=== PATIENT | female | born 1960 | race Caucasian/White ===

== ENCOUNTER → 2018-06-27 | Outpatient (CLI) | payer OTHER ==
[2018-06-27 09:00] LABS: BASO # 0.1 x10^3/uL (0.0-0.2); BASO % 1 % (0-3); EOS # 0.2 x10^3/uL (0.0-0.7); EOS % 4 % (0-3); HEMATOCRIT 49.2 % (36.0-47.0); LYMPH % 34 % (24-48); MEAN CORPUSCULAR HEMOGLOBIN 29 pg (25-35); MEAN CORPUSCULAR HGB CONC 35 g/dL (31-37); MEAN CORPUSCULAR VOLUME 84 fL (79-100); MONO # 0.5 x10^3/uL (0.0-1.1); MONO % 8 % (0-9); NEUT # 3.1 x10^3uL (1.8-7.7); NEUT % 53 % (31-73); PLATELET COUNT 210 x10^3/uL (140-400); RED BLOOD COUNT 5.86 x10^6/uL (3.50-5.40); RED CELL DISTRIBUTION WIDTH 12.9 % (11.5-14.5)
[2018-06-27 09:11] LABS: ALBUMIN 3.8 g/dL (3.4-5.0); ALBUMIN/GLOBULIN RATIO 0.9 (1.0-1.7); CALCIUM 9.1 mg/dL (8.5-10.1); CREATININE 0.8 mg/dL (0.6-1.0); GFR 73.2; TOTAL BILIRUBIN 0.4 mg/dL (0.2-1.0); TOTAL PROTEIN 7.9 g/dL (6.4-8.2)
[2018-06-27 09:14] LABS: POTASSIUM 4.7 mmol/L (3.5-5.1)
[2018-06-27 17:37] LABS: THYROID STIM HORMONE (TSH) 2.732 uIU/mL (0.358-3.740)
[2018-07-02 23:12] LABS: HCV ULTRA QUANT PCR 477000 IU/mL (.)
== END | disposition home or self-care (01) ==
LOC: LAB 08:13
PROVIDERS: ATTEND Family Medicine
DX: I10 Essential (primary) hypertension (principal); Z68.27 Body mass index [BMI] 27.0-27.9, adult
CPT/HCPCS: 36415; 80053; 80061; 84443; 85025; 86803; 87521

== ENCOUNTER → 2020-12-01 | Outpatient (CLI) | payer OTHER ==
[2020-12-01 10:13] LABS: HEMOGLOBIN 14.2 g/dL (12.0-15.5); RED BLOOD COUNT 4.95 x10^6/uL (3.50-5.40); RED CELL DISTRIBUTION WIDTH 13.3 % (11.5-14.5); WHITE BLOOD COUNT 7.1 x10^3/uL (4.0-11.0)
[2020-12-01 10:40] LABS: ALBUMIN 3.8 g/dL (3.4-5.0); ALBUMIN/GLOBULIN RATIO 1.1 (1.0-1.7); CREATININE 0.6 mg/dL (0.6-1.0); GFR 101.3; POTASSIUM 4.8 mmol/L (3.5-5.1); TOTAL BILIRUBIN 0.4 mg/dL (0.2-1.0); TOTAL PROTEIN 7.3 g/dL (6.4-8.2)
== END ==
LOC: LAB 09:25
PROVIDERS: ATTEND Family Medicine
DX: I10 Essential (primary) hypertension (principal)
CPT/HCPCS: 36415; 80053; 80061; 85027

== ENCOUNTER 2021-02-23 07:44 | Emergency (ER) | payer OTHER ==
[~2021-02-23] VITALS: Ht 162.6 cm; Wt 77.7 kg
[2021-02-23 07:50] VITALS: BP 156/84
--- NOTE | 2021-02-23 08:09 | PHYS DOC ---
Past History Past Surgical History: , Other Additional Past Surgical Histo: partial kidney removal Adult General Chief Complaint Chief Complaint: GI PROBLEM HPI HPI Patient is a 60-year-old female presenting via POV for flank pain. Onset was approximately 7 days ago without any known onset, mechanism of injury, trauma or other exposure. Nothing known makes better, certain positional movements make worse. Pain is sharp and deep with some radiation down into her flank and right groin. Timing of symptoms has been intermittent since onset but have been more constant in the past 24 hours prompting her to come in for evaluation. She has no history of kidney stones, denies any dysuria or other symptoms. 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 States she is otherwise been at baseline health prior to this episode. She is currently on Suboxone and reports this in addition to " Keflex for fish" that she got from local veterinary store for past 5 days has not improved her symptoms prompting her to come in for evaluation Review of Systems Review of Systems Fourteen body systems of review of systems have been reviewed. See HPI for pertinent positives and negative responses, other thompson all other systems are negative, non-pertinent or non-contributory Physical Exam Physical Exam Constitutional: Well developed, well nourished, no acute distress, non-toxic appearance. HENT: Normocephalic, atraumatic, bilateral external ears normal, oropharynx moist, no oral exudates, nose normal. Eyes: PERRLA, EOMI, conjunctiva normal, no discharge. Neck: Normal range of motion, no tenderness, supple, no stridor. Cardiovascular: Heart rate regular, sinus rhythm, no murmurs rubs or gallops Lungs & Thorax: Bilateral breath sounds clear to auscultation Abdomen: Bowel sounds normal, soft, no tenderness, no masses, no pulsatile masses. Nonsurgical abdomen, no peritoneal signs Skin: Warm, dry, no erythema, no rash. Back: No tenderness, right CVA tenderness Extremities: No tenderness, no cyanosis, no clubbing, ROM intact, no edema. Neurologic: Alert and oriented X 3, grossly normal motor & sensory function, no focal deficits noted. Psychologic: Affect normal, judgement normal, mood normal. Current Patient Data Vital Signs Vital Signs Date Time Temp Pulse Resp B/P (MAP) Pulse Ox O2 Delivery O2 Flow Rate FiO2 12/3/21 07:50 98.3 66 16 156/84 (108) 97 Room Air Vital Signs Date Time Temp Pulse Resp B/P (MAP) Pulse Ox O2 Delivery O2 Flow Rate FiO2 02/23/21 07:50 98.3 66 16 156/84 (108) 97 Room Air Lab Results Laboratory Tests Test 02/23/21 08:25 White Blood Count 8.7 x10^3/uL Red Blood Count 5.16 x10^6/uL Hemoglobin 14.7 g/dL Hematocrit 43.4 % Mean Corpuscular Volume 84 fL Mean Corpuscular Hemoglobin 29 pg Mean Corpuscular Hemoglobin Concent 34 g/dL Red Cell Distribution Width 13.2 % Platelet Count 243 x10^3/uL Neutrophils (%) (Auto) 69 % Lymphocytes (%) (Auto) 21 % Monocytes (%) (Auto) 8 % Eosinophils (%) (Auto) 1 % Basophils (%) (Auto) 1 % Neutrophils # (Auto) 6.0 x10^3uL Lymphocytes # (Auto) 1.8 x10^3/uL Monocytes # (Auto) 0.7 x10^3/uL Eosinophils # (Auto) 0.1 x10^3/uL Basophils # (Auto) 0.1 x10^3/uL Sodium Level 134 mmol/L Potassium Level 4.4 mmol/L Chloride Level 96 mmol/L Carbon Dioxide Level 29 mmol/L Anion Gap 9 Blood Urea Nitrogen 14 mg/dL Creatinine 0.7 mg/dL Estimated GFR (Cockcroft-Gault) 84.8 Glucose Level 101 mg/dL Calcium Level 9.1 mg/dL Troponin I High Sensitivity 6 ng/L Current Medications Medications (Trade) Dose Ordered Sig/Ash Route PRN Reason Start Time Stop Time Status Last Admin Dose Admin Sodium Chloride 1,000 ml @ 1,000 mls/hr 1X ONCE IV 02/23/21 08:15 02/23/21 09:14 UNV 02/23/21 08:29 EKG EKG EKG ordered and interpreted by myself at 0840 hrs. as sinus rhythm at 58 bpm, QRS prolonged at 144 otherwise unremarkable intervals, left axis deviation, T wave inversion in lead I and aVL, no STEMI Radiology/Procedures Radiology/Procedures EXAM: CT Abdomen and Pelvis without IV contrast CLINICAL HISTORY: rt flank pain, right abd pain, hx rt partial nephrectomy x 20+yrs COMPARISON: none TECHNIQUE: Helical CT of the abdomen and pelvis without intravenous contrast. Axial, coronal and sagittal reformatted images were generated. PQRS compliance statement - One or more of the following individualized dose reduction techniques were utilized for this study: 1. Automated exposure control 2. Adjustment of the mA and/or kV according to patient size 3. Use of iterative reconstruction technique FINDINGS: Lack of intravenous contrast limits evaluation of solid organs, vasculature, and lymph nodes. Lower chest: Linear opacities in the middle lobe and lingula likely scarring/atelectasis. Mitral calcifications. Coronary calcifications. Abdomen and Pelvis: Liver is cirrhotic in morphology no focal liver lesion. Gallbladder is normal. No biliary dilatation. Pancreas, spleen and adrenal glands are unremarkable. No focal renal lesion. No hydronephrosis. No hydroureter. Bladder is unremarkable. Uterus and adnexa are unremarkable. Moderate colonic stool content is seen. Chronic diverticulosis is seen. No small or large bowel dilatation. No bowel obstruction. No renal tract calculus. No hydronephrosis. No hydroureter. Bladder is unremarkable. Trace fat-containing umbilical hernia is seen. No abdominal or pelvic lymphadenopathy. No abdominal pelvic ascites. Bones: No aggressive osseous lesion is seen. IMPRESSION: No renal tract calculus. Liver is cirrhotic in morphology. Moderate colonic stool content. No bowel obstruction. Colonic diverticulosis without evidence for acute cholecystitis. Electronically signed by: Rigoberto James MD (02/23/2021 9:02 AM) [id number] DICTATED AND SIGNED BY: RIGOBERTO JAMES MD DATE: 02/23/21 0853 Heart Score C/O Chest Pain: No HEART Score for Chest Pain: HEART Score for Chest Pain Response (Comments) Value History Slighlty/Non-Suspicious 0 ECG Nonspecific Repolarizatio 1 Age >45 - < 65 1 Risk Factors 1 or 2 Risk Factors 1 Troponin < Normal Limit 0 Total 3 Risk Factors: Risk Factors: DM, Current or recent (<one month) smoker, HTN, HLP, family history of CAD, obesity. Risk Scores: Risk Factors: DM, Current or recent (<one month) smoker, HTN, HLP, family history of CAD, obesity. Course & Med Decision Making Course & Med Decision Making ABCs unremarkable. I disclosed entirety of ER findings and discussed most likely diagnosis of flank/abdominal pain of unknown etiology. Other diagnoses were discussed with patient such as kidney stones, ACS, no other intra-abdominal abnormalities/emergencies but all deemed less likely causes of patient's presentation. Patient symptoms resolved with ER intervention. Plan of care discussed at length with need for close outpatient follow-up to review today's ER visit stressed. Strict return precautions were also discussed at length with good understanding verbalized by patient. Patient voiced understanding and agreement with the plan. Patient knows to come back for repeat evaluation if concerning signs or symptoms present prior to outpatient follow-up. Hemodynamically stable, ambulatory and well-appearing at time of disposition. Dragon Disclaimer Dragon Disclaimer This electronic medical record was generated, in whole or in part, using a voice recognition dictation system. Departure Departure: Impression: Primary Impression: Flank pain Disposition: HOME / SELF CARE / HOMELESS Condition: STABLE Referrals: DAMION BECKETT MD (PCP) Additional Instructions: You have been evaluated in the Emergency Department today for abdominal pain. Your evaluation was not suggestive of any emergent condition requiring medical intervention at this time. However, some abdominal problems make take more time to appear. Therefore, it is important for you to watch for any new symptoms or worsening of your current c ondition. I did disclose findings of your CT abdomen pelvis study that was overall nonconcerning. He had evidence of moderate stool burden without obstruction, diverticulosis without acute infection, and liver cirrhosis and morphology that should be checked up on by primary care physician with [facility] Please continue supportive care practices as discussed that should include NSAIDs and/or Tylenol for pain in addition to prescribed Suboxone, heating pad and back/abdominal stretching exercises Return to the Emergency Department if you experience worsening pain, persistent fevers greater than 100.4, recurrent vomiting, blood in vomit, blood in stool, dark tarry stool, chest pain, difficulty breathing, or any other concerning symptoms. SHAAN ALLRED DO Feb 23, 2021 08:09
[2021-02-23] MEDS ORDERED: IV NORMAL SALINE 1,000ML 1,000 ML IV ONE (08:15)
[2021-02-23 08:50] LABS: BASO # 0.1 x10^3/uL (0.0-0.2); BASO % 1 % (0-3); EOS # 0.1 x10^3/uL (0.0-0.7); EOS % 1 % (0-3); HEMATOCRIT 43.4 % (36.0-47.0); HEMOGLOBIN 14.7 g/dL (12.0-15.5); LYMPH # 1.8 x10^3/uL (1.0-4.8); LYMPH % 21 % (24-48); MEAN CORPUSCULAR HEMOGLOBIN 29 pg (25-35); MEAN CORPUSCULAR HGB CONC 34 g/dL (31-37); MEAN CORPUSCULAR VOLUME 84 fL (79-100); MONO # 0.7 x10^3/uL (0.0-1.1); MONO % 8 % (0-9); NEUT % 69 % (31-73); PLATELET COUNT 243 x10^3/uL (140-400); RED BLOOD COUNT 5.16 x10^6/uL (3.50-5.40); RED CELL DISTRIBUTION WIDTH 13.2 % (11.5-14.5); WHITE BLOOD COUNT 8.7 x10^3/uL (4.0-11.0)
[2021-02-23 09:01] LABS: CALCIUM 9.1 mg/dL (8.5-10.1); CREATININE 0.7 mg/dL (0.6-1.0); GFR 84.8; POTASSIUM 4.4 mmol/L (3.5-5.1)
--- NOTE | 2021-02-23 09:05 | RAD ---
EXAM: CT Abdomen and Pelvis without IV contrast CLINICAL HISTORY: rt flank pain, right abd pain, hx rt partial nephrectomy x 20+yrs COMPARISON: none TECHNIQUE: Helical CT of the abdomen and pelvis without intravenous contrast. Axial, coronal and sagi ttal reformatted images were generated. PQRS compliance statement - One or more of the following individualized dose reduction techniques wer e utilized for this study: 1. Automated exposure control 2. Adjustment of the mA and/or kV according to patient size 3. Use of iterative reconstruction technique FINDINGS: Lack of intravenous contrast limits evaluation of solid organs, vasculature, and lymph nodes. Lower chest: Linear opacities in the middle lobe and lingula likely scarring/atelectasis. Mitral calcifications. C oronary calcifications. Abdomen and Pelvis: Liver is cirrhotic in morphology no focal liver lesion. Gallbladder is normal. No biliary dilatation. Pancreas, spleen and adrenal glands are unremarkable. No focal renal lesion. No hydronephrosis. No h ydroureter. Bladder is unremarkable. Uterus and adnexa are unremarkable. Moderate colonic stool content is seen. Chronic diverticulosis is seen. No small or large bowel dilat ation. No bowel obstruction. No renal tract calculus. No hydronephrosis. No hydroureter. Bladder is unremarkable. Trace fat-contai dayana umbilical hernia is seen. No abdominal or pelvic lymphadenopathy. No abdominal pelvic ascites. Bones: No aggressive osseous lesion is seen. IMPRESSION: No renal tract calculus. Liver is cirrhotic in morphology. Moderate colonic stool content. No bowel obstruction. Colonic diverticulosis without evidence for acute cholecystitis. Electronically signed by: Rigoberto Ferris MD (02/23/2021 9:02 AM) [id number]
--- NOTE | 2021-02-23 09:10 | EKG ---
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
== END 2021-02-23 10:21 | disposition home or self-care (01) ==
LOC: ER 07:44
DX: R10.9 Unspecified abdominal pain (principal); Z98.890 Other specified postprocedural states
CPT/HCPCS: 36415; 74176; 80048; 84484; 85025; 93005; 96360; 99285; J7030